=== PATIENT | female | born 2000 | race African-American/Black ===

== ENCOUNTER 2024-03-17 11:07 | Outpatient (OUT) | payer BC, SELFPAY ==
[2024-03-17 12:14] LABS: Basophils Percent Auto 0.8 % (0.2-2.0); Eosinophils Absolute Auto 0.2 10^3/uL (0.0-0.7); Eosinophils Percent Auto 3.1 % (0.9-7.0); Hematocrit 29.2 % (36.0-48.0); Hemoglobin 8.6 g/dL (12.0-16.0); Lymphocytes Absolute Auto 1.1 10^3/uL (1.2-3.8); Lymphocytes Percent Auto 21.2 % (20.5-60.0); Mean Corpuscular HGB Conc 29.5 g/dL (29.9-35.2); Mean Corpuscular Hemoglobin 20.4 pg (26.7-34.0); Mean Corpuscular Volume 69.2 fL (81.0-99.0); Monocytes Absolute Auto 0.6 10^3/uL (0.3-0.8); Monocytes Percent Auto 11.7 % (1.7-12.0); Neutrophils Absolute Auto 3.3 10^3/uL (1.4-6.5); Neutrophils Percent Auto 63.2 % (43.0-75.0); Platelet Count 173 10^3/uL (150-450); Red Blood Count 4.22 10^6/uL (4.20-5.40); Red Cell Distribution Width 19.5 % (11.0-15.0); White Blood Count 5.1 10^3/uL (4.0-11.0)
[2024-03-17 12:40] LABS: Estimated Average Glucose 111 mg/dL; Glycohemoglobin A1C 5.5 % (4.5-6.2)
[2024-03-17 12:41] LABS: INR 1.16; Partial Thromboplastin Time 27.8 sec (22.3-36.2); Prothrombin Time 12.1 sec (9.0-11.6)
[2024-03-17 12:49] LABS: Free T4 0.87 ng/dL (0.76-1.46)
[2024-03-17 13:41] LABS: HCG Quantitative <1 mIU/mL
[2024-03-18 08:13] LABS: Luteinizing Hormone(LH) 2.7 mIU/mL (.)
[2024-03-20 19:07] LABS: DHEA, Serum 272 ng/dL (31-701)
== END 2024-03-17 11:08 | disposition home or self-care (01) ==
LOC: LAB 11:18
PROVIDERS: PCP Family Medicine; Visit Provider Obstetrics & Gynecology
DX: N92.6 Irregular menstruation, unspecified (principal); N94.6 Dysmenorrhea, unspecified; N94.10 Unspecified dyspareunia
CPT/HCPCS: 36415; 82626; 82627; 83001; 83002; 83036; 84439; 84443; 84702; 85025; 85610; 85730